=== PATIENT | female | born 1945 | race Caucasian/White ===

== ENCOUNTER → 2016-07-07 | Outpatient (CLI) | payer OTHER ==
[2016-07-08 14:46] LABS: HEMATOCRIT 32.7 % (37.0-47.0); HEMOGLOBIN 9.8 g/dL (12.0-16.0); MEAN CORPUSCULAR HEMOGLOBIN 24.9 PG (27-31); RED BLOOD COUNT 3.94 10^6/uL (4.20-5.40)
[2016-07-08 15:03] LABS: CALCIUM 9.5 mg/dL (8.7-10.7); SERUM ALBUMIN 3.3 g/dL (3.5-4.8)
[2016-07-08 15:10] LABS: PLATELET MORPHOLOGY COMMENT SEE COMMENTS (NORM); RBC MORPHOLOGY COMMENT NORMAL MORPHOLOGY (NORM); WBC MORPHOLOGY COMMENT SEE COMMENTS (NORM)
[2016-07-08 15:11] LABS: BAND NEUTROPHILS % 1 % (0-10); BASOPHILS % (MANUAL) 1 % (0-1); EOSINOPHILS % (MANUAL) 2 % (0-8); LYMPHOCYTES % (MANUAL) 27 % (10-50); MONOCYTES % (MANUAL) 9 % (0-12); NEUTROPHILS % (MANUAL) 60 % (50-80)
== END ==
LOC: LAB 09:41
PROVIDERS: ATTEND Physician Assistant Medical
DX: R53.83 Other fatigue (principal); R63.4 Abnormal weight loss
CPT/HCPCS: 80053; 85007

== ENCOUNTER 2016-09-08 09:00 | Outpatient (CLI) | payer OTHER ==
[2016-09-08] MEDS ORDERED: diphenhydrAMINE 25 MG CAPSULE PO PRN (11:52)
[2016-09-08] MEDS ORDERED: NS 500 ML for Blood Transfusion PRIMARY IV PRN (11:52)
[2016-09-08] MEDS ORDERED: ACETAMINOPHEN 325 MG TABLET PO PRN (11:53)
[2016-09-08] MEDS ORDERED: NORMAL SALINE 10 ML SYRINGE FLUSH IVP PRN (12:30)
[2016-09-08 14:01] VITALS: RESP 20
[2016-09-08 19:00] VITALS: TEMP 98.4
== END 2016-09-08 18:55 | disposition home or self-care (01) ==
LOC: LAB 09:00 → IV THERAPY 09:00
PROVIDERS: ATTEND Nurse Practitioner
DX: C34.11 Malignant neoplasm of upper lobe, right bronchus or lung (principal); D63.0 Anemia in neoplastic disease
CPT/HCPCS: 36415; 36430; 86850; 86900; 86901; 86922; 99211; P9016; Q0163; J7040

== ENCOUNTER 2016-10-17 21:25 | Emergency (ER) | payer OTHER ==
[2016-10-17 21:45] VITALS: RESP 20
[2016-10-17] MEDS ORDERED: Sodium Chloride 0.9% 1,000 ML PRIMARY IV ONE (21:50)
[2016-10-17] MEDS ORDERED: NORMAL SALINE 10 ML SYRINGE FLUSH IVP PRN (21:50)
[2016-10-17 22:09] LABS: HEMATOCRIT 28.1 % (37.0-47.0); HEMOGLOBIN 8.9 g/dL (12.0-16.0); MEAN CORPUSCULAR HEMOGLOBIN 26.3 PG (27-31); MEAN CORPUSCULAR HGB CONC 31.7 g/dL (33-37); MEAN CORPUSCULAR VOLUME 82.9 FL (81-99); MEAN PLATELET VOLUME 9.6 FL (7.4-12.2); PLATELET MORPHOLOGY COMMENT NORMAL MORPHOLOGY (NORM); RBC MORPHOLOGY COMMENT SEE COMMENTS (NORM); RED BLOOD COUNT 3.39 10^6/uL (4.20-5.40); WBC MORPHOLOGY COMMENT NORMAL MORPHOLOGY (NORM)
[2016-10-17 22:10] LABS: BAND NEUTROPHILS % 1 % (0-10); BASOPHILS % (MANUAL) 0 % (0-1); EOSINOPHILS % (MANUAL) 1 % (0-8); LYMPHOCYTES % (MANUAL) 7 % (10-50); MONOCYTES % (MANUAL) 11 % (0-12); NEUTROPHILS % (MANUAL) 80 % (50-80)
[2016-10-17 22:13] LABS: BUN/CREATININE RATIO 18.33 (6-20); CALCIUM 9.9 mg/dL (8.7-10.7); SERUM ALBUMIN 3.6 g/dL (3.5-4.8)
--- NOTE | 2016-10-17 22:23 | PDOC ---
General Adult HPI - General Chief Complaint: Respiratory Complaint Stated Complaint: COUGHING BLOOD Date Seen by Provider: 10/17/16 Time Seen by Provider: 21:30 Source: POSITIVE: Patient Exam Limitations: POSITIVE: No limitations Nurse's Notes Reviewed & Considered: Yes EMS Report Reviewed & Considered: Verbal - History of Present Illness Initial Comment: The patient is a 71-year-old female who is transported to the emergency department by ambulance from the correction with complaints of coughing up blood. She has a known history of lung cancer which has been deemed terminal. She has elected not to pursue any aggressive treatments in regard to her lung cancer. She states that over the past 24 hour she's developed increase in productive cough. Initially this was productive of yellowish sputum. This evening she started to have some blood-tinged sputum and tissue appearing sputum. She also has developed some subjective fever and chills over the past couple of hours. She reportedly had a temperature of 102 at the correction and was given her Jud which contains Tylenol. She denies any other associated symptoms or complaints at this time. Have you received a tetanus shot in the past 10 years?: Unknown - Patient Home Medications Home Medications: Home Medications Docusate Sodium [Colace] 1 cap PO BID cap 07/30/16 Hydrocodone Bit/Acetaminophen [Jud 5-325 Tablet] 1 - 2 tab PO Q4H PRN tab 04/05 Ibuprofen 1 tab PO TID tab 07/30/16 Oxygen (O2) 1 l NASAL Contintuous #3 unit 07/30/16 Potassium Chloride 1 cap PO BID cap 07/30/16 Ondansetron HCl [Zofran] 1 tab PO Q4H PRN tab 07/31/16 Polyethylene Glycol 3350 [Miralax] 17 gm PO QD 07/31/16 fentaNYL Patch 25mcg [Duragesic Patch 25mcg] 25 mcgh TRANSDERM Q72H #10 patch Acetaminophen [Tylenol] 1,000 mg PO PRN PRN 10/17/16 - Patient Allergies Allergies/Adverse Reactions: Allergies Allergy/AdvReac Type Severity Reaction Status Date / Time No Known Drug Allergies Allergy NOT Verified 10/17/16 21:34 APPLICABLE Past Medical History - heen HEENT History: Denies History Cardiovascular History: Denies History Respiratory History: Emphysema, Home Oxygen Use, Other (please comment) Additional Respiratory History: LUNG CA Gastrointestinal History: Other (please comment) Additional Gastrointestinal History: CONSTIPATION Genitourinary History: Denies History Endocrine History: Denies History Musculoskeletal History: Denies History Neurological History: Denies History Blood Disorders: Denies History Psychiatric History: Other (please comment) Additional Psychiatric History: ANOREXIA History of Sexually Transmitted Diseases: No Female Reproductive History: Denies History Obstetrical History: Denies History Cancer History: Lung, Other (please comment) In Past Year Been Physically Harmed or Verbally Threatened: No History of MDRO: No History of Other Communicable Diseases: No Tobacco Use: Former Smoker Alcohol Use: None Substance Use Type: None Significant Family History: No pertinent family hx Past Medical History Reviewed: Reviewed - No Changes ROS - Limitations ROS Limitations: No Limitations Constitution: REPORTS: Chills, Fever Cardiovascular: DENIES: Denies Cardiac Symptoms Respiratory: REPORTS: Cough Productive, Shortness Of Breath (Wears oxygen at 3 L chronically) Gastrointestinal: REPORTS: Denies GI Symptoms Endocrine: REPORTS: Fatigue Musculoskeletal: REPORTS: Denies MS Symptoms Genitourinary: REPORTS: Denies Symptoms Eyes: REPORTS: Denies Symptoms ENT: REPORTS: Denies Symptoms Skin: DENIES: Rash General Adult Exam - General Appearance General Appearance: POSITIVE: Alert, Cooperative, No Acute Distress - HEENT HEENT: POSITIVE: Head Inspection Nml, Eyes Inspection Nml, Ears Inspection Nml, Pharynx Inspect. Nml - Neck Neck: POSITIVE: Normal Inspection. NEGATIVE: Lymphadenopathy - Respiratory Respiratory: POSITIVE: No Respiratory Distress, Breath Sounds Normal (Decreased breath sounds on the right) - Cardiovascular Cardiovascular: POSITIVE: Regular Rate & Rhythm, No Murmur Peripheral Pulses: Dorsalis-pedis (R): 2+, Dorsalis-pedis (L): 2+ - Abdomen Abdomen: Soft: (All Quadrants), Denies Tenderness: (All Quadrants), No Distention: (All Quadrants) - Back Back: POSITIVE: Normal Inspection - Skin Skin: POSITIVE: Normal Color, No Rash - Extremities Extremity: Normal ROM: (All Extremities), Normal Inspection: (All Extremities) - Neurological / Psychological Neurological: POSITIVE: Oriented X3 General Adult Progress - Results Reviewed by me Xrays/CTs/US Reviewed by me: Yes Radiology Findings: Chest x-ray reveals dense consolidation in the right upper lobe, no previous imaging is available for comparison Lab Results Reviewed: Yes Lab Results:: Laboratory Results 10/17/16 Range/Units 21:51 WBC 20.34 H (4.8-10.8) 10^3/uL RBC 3.39 L (4.20-5.40) 10^6/uL Hgb 8.9 L (12.0-16.0) g/dL Hct 28.1 L (37.0-47.0) % MCV 82.9 (81-99) FL MCH 26.3 L (27-31) PG MCHC 31.7 L (33-37) g/dL RDW Std Deviation 57.7 H (39-50) fL RDW Coeff of Judy 19.6 H (11.5-14.5) % Plt Count 853 H (140-350) 10*3/uL MPV 9.6 (7.4-12.2) FL Neutrophils % (Manual) 80 (50-80) % Band Neutrophils % 1 (0-10) % Lymphocytes % (Manual) 7 L (10-50) % Monocytes % (Manual) 11 (0-12) % Eosinophils % (Manual) 1 (0-8) % Basophils % (Manual) 0 (0-1) % Metamyelocytes % Not Reportable Myelocytes % Not Reportable Promyelocytes % Not Reportable Blast Cells Not Reportable WBC Morphology Comment Normal morphology (NORM) Plt Morphology Comment Normal morphology (NORM) RBC Morph Comment See comments (NORM) D-Dimer 4.09 H (0.00-0.59) mg/L Sodium 136 (135-145) meq/L Potassium 4.4 (3.8-5.2) meq/L Chloride 97 L (98-112) meq/L Carbon Dioxide 27 (23-33) meq/L Anion Gap 12 (5-20) BUN 11 (7-22) mg/dL Creatinine 0.6 (0.50-1.20) mg/dL Estimated GFR (>60 ml/min/1.73m(2)) BUN/Creatinine Ratio 18.33 (6-20) Glucose 136 H (78-110) mg/dL Calculated Osmolality 282.0 (267-292) mOsm/kg Lactic Acid 0.8 (0.70-2.10) MMOL/L Calcium 9.9 (8.7-10.7) mg/dL Total Bilirubin 0.5 (0.3-1.2) mg/dL AST 26 (8-39) IU/L ALT 26 (9-52) IU/L Alkaline Phosphatase 178 H (38-126) IU/L C-Reactive Protein 27.0 H (0.0-0.9) mg/dL Total Protein 8.1 H (6.1-8.0) g/dL Albumin 3.6 (3.5-4.8) g/dL Globulin 4.5 H (2.50-4.10) g/dL Albumin/Globulin Ratio 0.80 L (1.3-2.0) mg/g - Patient's Progress MDM / ED Course: The patient appeared to flush on arrival and felt warm to the touch however her measured temperature was normal. She apparently did have a fever at the correction with temperature of 102. Blood cultures and lactate were obtained with initial IV start. Her white count is elevated at 20,000. Her chest x-ray shows dense consolidation in the right upper lobe with no previous imaging available for comparison. Her d-dimer was also significantly elevated and may CTA of the chest was ordered. Current results were discussed with the patient. At this point she most likely has pneumonia and associated lung cancer. Her cancer has been deemed terminal and she has decided not to pursue any aggressive treatments for this and is primarily interested in comfort care. I did discuss her current illness. Her hemoptysis could be secondary to infection or progression of cancer with erosion into blood vessel. Either one of these could become life threatening or serious. The patient is very comfortable with her decision not to pursue any aggressive treatment measures and her primary interest is in comfort care. I discussed with her in length treatment options including been admitted to the hospital for IV antibiotics and treatment versus treatment at the correction with antibiotics versus continued comfort care without treatment of any infection. The patient elected to be treated with oral antibiotics at the correction. She understands that her condition could worsen significantly quickly and is comfortable with her decision not to pursue aggressive treatment measures. She was started on Levaquin 750 mg daily and will continue current medications as previously prescribed at the correction. The CTA of her chest was canceled. - Consult Counseled: POSITIVE: Patient, Family, RE: Lab Results, RE: Radiology Results, RE : DX, RE: Need for F/U Patient Care Time - Estimated PCT Patient Care Time (In Minutes): 40 Vital Signs - Recent Vital Signs Vital Signs: Vital Signs (Last 8 hours) Temp Pulse Resp BP Pulse Ox 10/17/16 21:26 98.6 F 114 H 20 122/53 96 - VS Reviewed Vital Signs Reviewed: Yes Discharge Clinical Impression: Pneumonia, Lung cancer Discharge Disposition: Other (Patient return to the correction) Condition: Stable Patient Instructions Given at Discharge: Bacterial Pneumonia (ED) Additional Instructions: Likely have pneumonia in addition to the known lung cancer. After discussing treatment options he will be started on antibiotics orally with continued treatment and comfort measures at the correction. Start Levaquin 750 mg daily for 10 days. Continue other medications as previously prescribed. Follow -up with primary care in 3-5 days. Follow Up With: MARISA DIANA [Primary Care Provider] -
[2016-10-17 23:37] VITALS: TEMP 98.5
--- NOTE | 2016-10-19 11:53 | DI ---
PA /LATERAL CHEST X-RAY, 10/17/2016 8:50 PM : Clinical History: Hemoptysis. Previous Exam: None at this facility. There is no acute soft tissue or bony abnormality. Heart size is normal. There is complete consolidat ion of the right upper lobe with minimal if any volume loss. There is a small right pleural effusion. No air bronchograms are present and there is no appreciable volume loss. The differential would incl ude a tumor mass, and much less likely pneumonia or pulmonary embolism with infarction. A CT angiogra m of the chest with IV contrast is recommended. Mediastinal structures are normal. There are no pulmo nary nodules. Readin. Complete opacification of the right upper lobe with virtually no loss of volume or presence of ai r bronchograms. 2. A CT angiogram of the chest is recommended.
== END 2016-10-17 23:12 | disposition home or self-care (01) ==
LOC: ER 21:25
DX: J18.9 Pneumonia, unspecified organism (principal); C34.11 Malignant neoplasm of upper lobe, right bronchus or lung; R50.9 Fever, unspecified; R06.02 Shortness of breath; R79.1 Abnormal coagulation profile; R04.2 Hemoptysis; Z99.81 Dependence on supplemental oxygen
CPT/HCPCS: 36415; 71020; 80053; 83605; 85007; 85379; 86140; 87040; 99283; J7030

== ENCOUNTER 2016-10-24 06:00 | Emergency (ER) | payer OTHER ==
--- NOTE | 2016-10-24 06:29 | PDOC ---
Gen Adult / Medical Screen HPI - General Chief Complaint: Laceration / Wound Stated Complaint: FALL WITH LACERATION TO BACK OF HEAD Date Seen by Provider: 10/24/16 Time Seen by Provider: 06:29 Source: POSITIVE: Patient - History of Present Illness Initial Comments: Miss Jefferson is a 71-year-old woman coming in to us today from [facility]. Sometime during the night she fell and spent several hours on the floor unable to get up. She doesn't number exactly when she fell but she does not recall feeling any dizziness chest pain or shortness of breath prior to it. She landed right on her tailbone and then on the back of her head. When nursing staff found her at about 5 AM this morning there was a bunch of clotted , matted blood to the back of her head but she was awake and alert. Right now she is reporting pain to her tailbone as well as to a small cut on the back of her head. She has a history of lung cancer she is currently DO NOT RESUSCITATE but does want antibiotics and pain medicines if indicated. She is not on any blood thinners. Over the past few weeks, her appetite has slowly been getting worse and she is not really taking much oral intake. She has a fentanyl patch on her left shoulder right now for her chronic pain, also takes hydrocodone as needed. - Patient Home Medications Home Medications: Home Medications Docusate Sodium [Colace] 1 cap PO BID cap 07/30/16 Hydrocodone Bit/Acetaminophen [Cutler 5-325 Tablet] 1 - 2 tab PO Q4H PRN tab 04/05 Ibuprofen 1 tab PO TID tab 07/30/16 Oxygen (O2) 1 l NASAL Contintuous #3 unit 07/30/16 Potassium Chloride 1 cap PO BID cap 07/30/16 Ondansetron HCl [Zofran] 1 tab PO Q4H PRN tab 07/31/16 Polyethylene Glycol 3350 [Miralax] 17 gm PO QD 07/31/16 Acetaminophen [Tylenol] 1,000 mg PO PRN PRN 10/17/16 fentaNYL Patch 50mcg [Duragesic Patch 50mcg] 1 patch TD Q3D 10/24/16 - Patient Allergies Allergies/Adverse Reactions: Allergies Allergy/AdvReac Type Severity Reaction Status Date / Time No Known Drug Allergies Allergy NOT Verified 10/24/16 06:50 APPLICABLE Past Medical History - heen HEENT History: Denies History Cardiovascular History: Denies History Respiratory History: Emphysema, Home Oxygen Use, Other (please comment) Additional Respiratory History: LUNG CA Gastrointestinal History: Other (please comment) Additional Gastrointestinal History: CONSTIPATION Genitourinary History: Denies History Endocrine History: Denies History Musculoskeletal History: Denies History Neurological History: Denies History Blood Disorders: Denies History Psychiatric History: Other (please comment) Additional Psychiatric History: ANOREXIA History of Sexually Transmitted Diseases: No Cancer History: Lung, Other (please comment) History of MDRO: No History of Other Communicable Diseases: No Alcohol Use: None Substance Use Type: None Significant Family History: No pertinent family hx Past Medical History Reviewed: Reviewed - No Changes ROS - Limitations ROS Limitations: No Limitations Constitution: REPORTS: Denies Symptoms Cardiovascular: REPORTS: Denies Cardiac Symptoms Respiratory: REPORTS: Denies Resp Symptoms Neurological: REPORTS: Headache Gastrointestinal: REPORTS: Denies GI Symptoms Endocrine: REPORTS: Fatigue Musculoskeletal: REPORTS: Back Pain Genitourinary: REPORTS: Denies Symptoms Eyes: REPORTS: Denies Symptoms ENT: REPORTS: Denies Symptoms Skin: REPORTS: Denies Skin Symptoms Lympathic: REPORTS: Denies Lympathic Symptoms Immunologic: POSITIVE: Denies Symptoms Psychiatric: POSITIVE: Denies Psych Symptoms Gen Adult/Medical Screen Exam - General Appearance General Appearance: POSITIVE: Alert, Cooperative, No Acute Distress - HEENT HEENT: POSITIVE: Other (2 cm laceration to the left side of her occiput. Bleeding is controlled at this point there is a small amount dehiscence. No other hematomas or abrasions.) - Pupils Pupil Size: 2 mm: Bilateral - Neck Neck: POSITIVE: Normal Inspection - Respiratory Respiratory: POSITIVE: No Respiratory Distress, Chest Non-Tender - Cardiovascular Cardiovascular: POSITIVE: Regular Rate & Rhythm Peripheral Pulses: Radial (R): 2+, Radial (L): 2+ - Abdomen Abdomen: Soft: (All Quadrants), Normal Bowel Sounds: (All Quadrants), Denies Tenderness: (All Quadrants), No Splenomegaly: (All Quadrants), No Hepatomegaly: (All Quadrants) - Back Back: POSITIVE: Other (Mild tenderness to the prominence overlying the coccyx, there is no abrasions or open wounds. There is a small amount of erythema.) - Neurological / Psychological Mental Status: POSITIVE: Mood Normal, Affect Normal Orientation: POSITIVE: Oriented x 3 - Skin Skin: POSITIVE: Normal Color, Warm, No Rash - Extremities Extremity: Non-Tender: (All Extremities), Normal ROM: (All Extremities), Normal Inspection: (All Extremities) Procedures - Laceration/Wound Repair Did patient have a laceration repair: Yes Site of Laceration/Wound: left of the occiput Wound Length (cm): 2 Distal CMS: Yes Local Anesthesia Used - Indicate Amt Used in Comment: Lidocaine 1%: Yes Irrigated w/ Saline (mL): 50 Wound Explored: Clean Wound Debrided: Minimal Wound Repaired With: [place] Number of [place]: 4 Layer Closure?: No Drain Placement: No Sterile Dressing Applied?: No Splint Applied?: No Gen Adlt/Medical Scrn Progress - Results Reviewed by me Xrays/CTs/US Reviewed by me: Yes Radiology Findings: no evidence of acute intracranial abnormality, no evidence of significant coccyx injury - Patient's Progress Pain Medication Addressed: POSITIVE: Yes MDM / ED Course: Miss Blair is a 71-year-old woman who is a DO NOT RESUSCITATE with end-stage lung cancer, coming in today with fall during the night. She also has an acute laceration to her occiput due to this fall. My estimation is that the phone due to chronic worsening weakness related to her diagnosis of cancer. Her oral intake has been dropping off over the past few weeks and so she is likely week from that as well. CT scan of the head and x-ray of the pelvis did not reveal any concerning findings. We repaired the laceration on the back of her head as detailed above. We gave her 1 dose of hydrocodone for pain. Patient Care Time - Estimated PCT Patient Care Time (In Minutes): 25 Vital Signs - Recent Vital Signs Vital Signs: Vital Signs (Last 8 hours) Temp Pulse Resp BP Pulse Ox 10/24/16 06:00 99.3 F 107 H 17 95/72 95 - VS Reviewed Vital Signs Reviewed: Yes Discharge Clinical Impression: Laceration - injury, Weakness generalized Fall Qualifiers: Encounter type: initial encounter Qualifier Code: (W19.XXXA) Unspecified fall, initial encounter Discharge Disposition: Discharged to Home Condition: Stable Patient Instructions Given at Discharge: Laceration (ED) Additional Instructions: The skin clips need to be removed in 5-7 days, you can come back to the emergency department for this, or have the physician at your facility do it. The Xray and CT scan showed no evidence of injury. Follow Up With: MARISA DIANA [Primary Care Provider] -
[2016-10-24] MEDS ORDERED: Lidocaine 1% 10 MG/ML - 20 ML VIAL SUBCUT ONE (06:30)
[2016-10-24] MEDS ORDERED: HYDROcodone-APAP 5 MG -325 MG TABLET PO ONE (06:48)
[2016-10-24 07:24] VITALS: RESP 17; TEMP 99.3
--- NOTE | 2016-10-24 07:47 | DI ---
CT HEAD SCAN WITHOUT IV CONTRAST, 10/24/2016 6:30 AM : Clinical History: Head injury. The patient fell. Previous Exam: None at this facility. Scans are obtained from the foramen magnum to the vertex without IV contrast. The fourth ventricle is of normal size, shape, position and contour. The third and lateral ventricles are very mildly dilated but are otherwise normal. There are no abnormal areas of increased or decrea sed density. Specifically, there is no evidence of an acute intracranial hemorrhagic focus. There is mild cerebral atrophy. There are no extracerebral mantles or shift of the midline structures. Bone wi ndow evaluation is normal. The paranasal sinuses are normal. READIN. There is no evidence of an acute intracranial hemorrhagic focus. 2. Mild cerebral atrophy. The study is otherwise normal.
--- NOTE | 2016-10-24 07:48 | DI ---
AP PELVIS, 10/24/2016 6:30 AM : Clinical History: Pain. Previous Exam: None at this facility. There is no soft tissue abnormality. The bony structures of the pelvis are normal. The AP projection of each hip is normal. There is osteoporosis. Readin. Normal AP pelvis exam. 2. Osteoporosis. 3. If symptoms persist at the affected site, then follow-up films or a CT scan of the pelvis are rec ommended in 7-10 days, especially if there is a history of trauma.
== END 2016-10-24 08:22 | disposition home or self-care (01) ==
LOC: ER 06:00
DX: S01.01XA Laceration without foreign body of scalp, initial encounter (principal); R53.1 Weakness; M81.0 Age-related osteoporosis without current pathological fracture; W19.XXXA Unspecified fall, initial encounter
CPT/HCPCS: 12001; 70450; 72170; 99282; J2001

== ENCOUNTER 2016-12-26 11:34 | Inpatient (IN) ==
[2016-12-26] MEDS ORDERED: Sodium Chloride 0.9% 1,000 ML PRIMARY IV ONE (12:05)
[2016-12-26] MEDS ORDERED: NORMAL SALINE 10 ML SYRINGE FLUSH IVP PRN (12:05)
[2016-12-26 12:13] LABS: Hematocrit [HCT] 23.6 % (37.0-47.0); MEAN CORPUSCULAR HEMOGLOBIN 24.9 PG (27-31); MEAN CORPUSCULAR HGB CONC 28.8 g/dL (33-37); MEAN CORPUSCULAR VOLUME 86.4 FL (81-99); MEAN PLATELET VOLUME 9.6 FL (7.4-12.2); RED BLOOD COUNT 2.73 10^6/uL (4.20-5.40)
[2016-12-26 12:19] LABS: BLOOD UREA NITROGEN 7 mg/dL (7-22); SERUM ALBUMIN 2.8 g/dL (3.5-4.8)
[2016-12-26 12:23] LABS: VENOUS PH 7.45 (7.32-7.42)
[2016-12-26 12:44] LABS: Hemoglobin [HGB] 6.8 g/dL (12.0-16.0); WBC MORPHOLOGY COMMENT NORMAL MORPHOLOGY (NORM)
[2016-12-26 12:45] LABS: BAND NEUTROPHILS % 6 % (0-10); BASOPHILS % (MANUAL) 0 % (0-1); EOSINOPHILS % (MANUAL) 1 % (0-8); METAMYELOCYTES % 0 %; MONOCYTES % (MANUAL) 3 % (0-12); MYELOCYTES % 0 %; NEUTROPHILS % (MANUAL) 83 % (50-80); PLATELET MORPHOLOGY COMMENT SEE COMMENTS (NORM); PROMYELOCYTES % 0 %; RBC MORPHOLOGY COMMENT SEE COMMENTS (NORM)
[2016-12-26 13:19] LABS: BILIRUBIN,URINE NEGATIVE (NEG); CLARITY,URINE CLEAR (CLEAR); COLOR,URINE YELLOW (Y); GLUCOSE, URINE (UA) NEGATIVE (NEG); NITRATE,URINE NEGATIVE (NEG); OCCULT BLOOD,URINE Trace-intact (NEG); PROTEIN,URINE NEGATIVE (NEG); UROBILINOGEN,URINE 0.2 EU/dL (0.2)
[2016-12-26 13:26] LABS: RBC,URINE 0-3 /hpf; SQUAMOUS EPITHELIAL CELL,UR RARE; URINE SAMPLE TYPE CLEAN CATCH URINE; WBC,URINE 0-1
--- NOTE | 2016-12-26 13:37 | DI ---
XR CXR 2VW PA/LAT,12/26/2016 12:05 PM: Clinical History: Fever and prior history of breast and lung cancer. Previous Exam: October 17, 2016 Findings: PA and lateral views of the chest are obtained, and demonstrate some increasing opacity of the right upper lung field since the prior exam. There is no infiltrate noted and no effusion. Impression: Increasing opacification of the right hemithorax. This could represent some developing airspace disea se or some mass effect or atelectasis. Correlate clinically. A CT may be appropriate.
[2016-12-26] MEDS ORDERED: Ertapenem Inj 1 GM in Sodium Chloride 0.9% 100 ML IV ONE (13:49)
[2016-12-26] MEDS ORDERED: CLONAZEPAM PO PRN (15:29)
[2016-12-26] MEDS ORDERED: ALBUTEROL SULFATE 2.5 MG/3 ML NEB PRN (15:29)
[2016-12-26] MEDS ORDERED: LIDOCAINE W/ SODIUM BICARB 0.5 ML SYR SUBD PRN (15:29)
[2016-12-26] MEDS ORDERED: cefTRIAXone Inj 2 GM in Sodium Chloride 0.9% 100 ML IV SCH ×2 (15:29→18:00)
[2016-12-26] MEDS ORDERED: fentaNYL 100 MCG/HR PATCH TRANSDERM SCH ×2 (15:29→16:00)
[2016-12-26] MEDS ORDERED: ONDANSETRON 4 MG/2 ML VIAL IVP PRN (15:29)
[2016-12-26] MEDS: NORMAL SALINE 10 ML SYRINGE FLUSH IVP PRN (17:37)
[2016-12-26] MEDS ORDERED: POTASSIUM CHLORIDE 20 MEQ TAB PO ONE (19:01)
--- NOTE | 2016-12-26 19:06 | DI ---
CLINICAL HISTORY: Fever. Lung cancer. Pneumonia. Concern for pulmonary embolus. COMPARISON: No comparison images available. TECHNIQUE: CTA of the chest was performed without and with contrast and submitted for interpretation. FINDINGS: There is no evidence of pulmonary embolus, noting that evaluation of the right upper lobe b ranches is not possible secondary to underlying pulmonary findings described below. The main pulmona ry artery is normal in caliber. There is complete opacification of the right upper lobe, nonspecific and can be correlated with any r elevant surgical history. If no relevant surgical history is present, these findings are concerning for postobstructive atelectasis related to central obstructing mass. Interstitial thickening, small right pleural effusion, and several small nodules in the right lower lobe are nonspecific in the curr ent setting. There is an increased number of mediastinal lymph nodes, nonspecific. No axillary lymp hadenopathy is seen. There is an asymmetric 2.8 cm left superior periareolar breast mass, which can be initially correlate d with mammography and/or ultrasound. The imaged portions of the upper abdomen are grossly unremarka ble. IMPRESSION: 1. No pulmonary embolus, noting nondiagnostic evaluation of the right upper lobe secondary to underly ing pulmonary pathology. 2. Concern for postobstructive collapse of the right upper lobe secondary to central mass unless rele vant surgical history can explain these findings. 3. Right lower lobe interstitial thickening and several small nodules are nonspecific and may current setting. Small right pleural effusion. 4. Asymmetric left breast mass can be further evaluated with mammography and/or ultrasound. NOTIFICATION: The above findings were phoned to Cammie Ocasio in the ER Department on 12/26/2016 at 9:1 8 pm EST.
--- NOTE | 2016-12-26 19:12 | DI ---
HISTORY: Elevated liver function tests. Lung cancer. Fever. COMPARISON: No comparison images available. TECHNIQUE: CT of the abdomen and pelvis was performed and submitted for interpretation. FINDINGS: There is a small right pleural effusion. Please see report from CT of the chest performed the same day for further evaluation of the thoracic anatomy. The liver is grossly unremarkable. The gallbladder is grossly unremarkable. There is no biliary kamilah ekta dilatation. The spleen is within normal limits. The pancreas and adrenal glands are unremarkable. The kidneys are within normal limits. Please note diffuse anasarca and lack of oral contrast limit evaluation for subtle inflammatory aleman es. The imaged bowel, mesentery, and omentum are unremarkable without evidence of obstruction or per foration. There is no lymphadenopathy by size criteria. There is no ascites. No acute skeletal patho logy is seen. Diffuse atherosclerotic calcifications are noted. There are two areas of fusiform aneurysmal dilatat ion of the infrarenal abdominal aorta up to 2.7 cm in caliber. IMPRESSION: 1. No gross acute abdominopelvic pathology, noting limitations related to anasarca lack of oral contr ast. 2. Two areas of fusiform infrarenal abdominal aortic aneurysmal dilatation up to 2.7 cm in caliber. NOTIFICATION: The above findings were phoned to Cammie Ocasio in the ER Department on 12/26/2016 at 9:1 8 pm EST.
[2016-12-26] MEDS ORDERED: Sodium Chloride 0.9% 100 ML IV ONE (19:38)
[2016-12-26] MEDS ORDERED: CEFTRIAXONE SODIUM 2 GM VIAL IV ONE (19:39)
--- NOTE | 2016-12-26 20:14 | PDOC ---
HPI - History of Present Illness Date and Time of Service: 12/26/2016, 2007 Chief Complaint: fever and confusion History of Present Illness: This is a very pleasant 71 YO female that [facility] as a result of a sudden onset of fever and confusion at [facility] today. No reports of cough, nausea, vomiting, diarrhea, abdominal pain, or other symptoms. The patient was difficult to arouse at meal time and was sent for evaluation here due to her fever. A chest xray was done and it was presumed she had pneumonia and she was given a dose of invanz. The patient was also noted to be off her oxygen (normally on 3 LPM), and was placed on 5 LPM. She was found to have elevated WBC, hemoglobin of under 7, but does not want blood transfusions or aggressive therapy. She stated to me she was DNR/DNI. She only wants antibiotics if her quality of life will not be compromised and she will not have any artificial extension of life. The patient admits to me she gets confused about details of her situation and has noticed a gradual decline in her stamina and health this past year. No interventions were tried prior to transfer from [facility]. No exacerbating factors. She does not feel any different after treatment in the ER. The patient did state to me that she opted for diagnostic work up of lung mass and was told she had cancer and refused treatment options of radiation. She told me she though it was a metastatic lesion related to breast cancer. Past Medical History Medical History: 1. presumably, lung cancer, or metastatic disease to lung. 2. COPD, on 3 LPM chronicallyl. 3. neoplastic pain syndrome. 4.weight lossof 25 pounds in past 12 months. Surgical History: 1. lung biopsy, I am trying to get pathology records. Pertinent Family History: She stated her parents both of cancer. Past Social History: used to live in [facility], has two sons, described as healthy, quit smoking in the past, no alcohol, resides in [facility]. Tobacco Use: Former Smoker In the Past 12 Months, Have Used or Abuse Any of the Following Substance: None Alcohol Use: None Medication / Allergies Home Medications: Home Medications Medication Instructions Recorded Confirmed Type Docusate Sodium [Colace] 1 cap PO BID cap 07/30/16 12/26/16 History Oxygen (O2) 1 l NASAL Contintuous #3 unit 07/30/16 12/26/16 Clinic Polyethylene Glycol 3350 [Miralax] 17 gm PO QD 07/31/16 12/26/16 History Fentanyl 100 mcgh TRANSDERM Q72H patch 11/18/16 12/26/16 History Clonazepam 1 tab PO QD tab 11/29/16 12/26/16 History Clonazepam 1 tab PO QD PRN #30 tab 12/04/16 12/26/16 Clinic Hydrocodone/Acetaminophen 1 tab PO Q4-6H PRN #180 tab 12/04/16 12/26/16 Clinic [Hydrocodon-Acetaminophen 5-325] Ibuprofen [Ibuprofen Ib] 2 tab PO TIDWM #180 tab 12/04/16 12/26/16 Clinic Mirtazapine 7.5 mg PO QHS #30 tab 12/04/16 12/26/16 Clinic Ondansetron HCl 8 mg PO QAM #60 tab 12/04/16 12/26/16 Clinic Allergies/Adverse Reactions: Allergies 3 Allergy/AdvReac Type Severity Reaction Status Date / Time No Known Drug Allergies Allergy NOT Verified 12/26/16 18:27 APPLICABLE Review of Systems - Review of Systems All Systems: Reviewed & No Additional Complaints Except as Stated (I did a 12 point review of systems and it was negative exept as per HPI and that noted below:) - Constitutional Constitutional: REPORTS: General Health Poor, Weight Loss, Fever / Chills - Mouth/Throat Mouth/Throat Exam: REPORTS: Other (throat is dry often) - Respiratory Respiratory: REPORTS: Other (denies symptoms.) - Cardiovascular Cardiovascular: REPORTS: Negative System Review - Gastrointestinal Gastrointestinal / Abdominal: REPORTS: Negative System Review - Genitourinary Genitourinary: REPORTS: Negative System Review - Musculoskeletal Musculoskeletal: REPORTS: Negative System Review - Hematlogic / Lymphatic Hematologic / Lymphatic: REPORTS: Other (has cancer, she stated she had a left breast lump that she does not think anyone has looked at.) - Neurological Neurologic: REPORTS: Other (confusion, which she states is common for her. I was also able to note this same complaint on admission to [facility].) Exam - Vitals Vital Signs: Vital Signs Vital Signs (24 hrs) Temp Pulse Resp BP Pulse Ox 12/26/16 15:32 84 16 12/26/16 15:30 98.4 F 81 20 152/68 98 12/26/16 11:50 100.1 F H 93 18 149/66 92 nula Height 5 ft 2 in Weight 124 lb 14.4 oz - General General Appearance: No Acute Distress, Cooperative - Head Head Exam: Normal Inspection, Normocephalic, Atraumatic - Eye Eye Exam: POSITIVE: No Scleral Icterus - ENT ENT Exam: POSITIVE: Mucous Membranes Dry - Neck Neck Exam: Normal Inspection, No Tenderness, Thyromegaly - Respiratory Respiratory Exam: POSITIVE: Breathing Non Labored, Normal to Percussion and Palpation, Decreased Breath Sounds, Coarse Breath Sounds - Cardiovascular Cardiovascular Exam: POSITIVE: RRR, No Murmur, No Clicks, No Gallops, No Rubs, No JVD - GI/Abdominal GI/Abdominal Exam: POSITIVE: Normal Bowel Sounds, Non Tender, Non Distended, Soft - Rectal Rectal Exam: POSITIVE: Deferred - External Exam: POSITIVE: Deferred Exam: POSITIVE: Deferred - Extremities Extremities Exam: POSITIVE: No Clubbing Present, No Edema Present, No Cyanosis Present - Back Back Exam: POSITIVE: Normal Inspection, No CVA Tenderness - Neurological Neurological Exam: POSITIVE: Alert, Oriented x 3 (at thie time of my exam.), No Facial Droop, Speech Intact / Clear, Moves All Extremities Equally - Psychiatric Psychiatric Exam: POSITIVE: Normal Affect, Normal Mood - Integumentary Integumentary Exam: POSITIVE: Normal Color, Warm, Dry, Intact Additional Integumentary Exam Details: breast exam on left breast done with director of physical security in room. large upper, left quadrant mass palpated (12 to 3 position) Results - Labs CBC and BMP: 12/26/16 11:50 12/26/16 11:50 - Imaging Status: Image Reviewed by Me (on my evaluation of the chest X-ray, There is a complete opacification of the right upper lobe. I do not see any mass.) Assessment and Plan - Patient Problems (1) COPD exacerbation Current Visit: Yes Status: Acute Code(s): J44.1 - Chronic obstructive pulmonary disease with (acute) exacerbation (2) Fever Current Visit: Yes Status: Acute Code(s): R50.9 - Fever, unspecified Qualifiers: Fever type: unspecified Qualified Code(s): R50.9 - Fever, unspecified (3) Metastasis to lung Current Visit: Yes Status: Acute Code(s): C78.00 - Secondary malignant neoplasm of unspecified lung Qualifiers: Laterality: right Qualified Code(s): C78.01 - Secondary malignant neoplasm of right lung (4) Left breast mass Current Visit: Yes Status: Acute Code(s): N63 - Unspecified lump in breast (5) Weight loss Current Visit: Yes Status: Acute Code(s): R63.4 - Abnormal weight loss (6) Anemia in chronic illness Current Visit: Yes Status: Acute Code(s): D63.8 - Anemia in other chronic diseases classified elsewhere (7) Leukocytosis Current Visit: Yes Status: Acute Code(s): D72.829 - Elevated white blood cell count, unspecified Qualifiers: Leukocytosis type: unspecified Qualified Code(s): D72.829 - Elevated white blood cell count, unspecified (8) Hypokalemia Current Visit: Yes Status: Acute Code(s): E87.6 - Hypokalemia - Assessment / Plan Additional Assessment/Plan Details: I ordered and reviewed a CT of the chest to determine if there was a pneumonia or some other process with the significant opacification on CXR-- I think it is most consistent with a chronically collapsed lung, but no infiltrate was noted. an abdominal CT scan was done as well, but was obscured by ascites--however, no liver lesions noted with increased alk phos. overall, this is likely malignancy related fever or possible COPD exacerbation or a post obstructive pneumonia that is obscured by a collapsed right upper lung. If this is a pneumonia, she is a class V pneumonia with a mortality of over 25%. The CURB-65, the score is 3, with a 17% risk of at 30 days. overall, I will elect to replace potassium, treat as if this is a COPD exacerbation with antibiotics, steroids, and breathing therapies PRN, and oxygen as necessary. If the patient makes progress, hopefully discharge back to [facility], and if not, then consider escalation in end of life care --perhaps hospice discussion with family again. I will respect the patient's request of not doing any therapy to extend life. I think a brain MRI might be helpful with repeated confusion complaints. if there are brain lesions, it could factor into whether the patient would become a do not transport patient or something of that nature. prognosis extremely guarded.
[2016-12-26] MEDS: DOCUSATE 100 MG CAPSULE PO SCH (20:15)
[2016-12-26] MEDS: D5-1/2NS + 20mEq KCL 1,000 ML PRIMARY IV SCH (20:39)
[2016-12-26] MEDS ORDERED: Mirtazapine Tab 7.5 MG TABLET PO SCH (21:00)
[2016-12-26] MEDS: HYDROcodone-APAP 5 MG -325 MG TABLET PO PRN (23:42)
[2016-12-27] MEDS ORDERED: ClonazePAM Tab 1 MG TABLET PO PRN (00:23)
--- NOTE | 2016-12-27 03:08 | PDOC ---
General Adult HPI - General Chief Complaint: General Medical Stated Complaint: fever Date Seen by Provider: 12/26/16 Time Seen by Provider: 11:10 Source: POSITIVE: Patient, RN/MD Exam Limitations: POSITIVE: No limitations Nurse's Notes Reviewed & Considered: Yes EMS Report Reviewed & Considered: Verbal - History of Present Illness Initial Comment: The patient is a 71-year-old female who is transferred to the emergency room by ambulance from the [facility]. Patient states she has a history of breast cancer metastatic to her lungs. This morning assisted staff found that the patient is febrile. prison staff called the paramedics and paramedics report that upon their arrival the patient had an oxygen saturation of 79% and a fever of 102F. Paramedics placed the patient on supplemental oxygen and her oxygen saturation on arrival to the emergency room was 97%. Patient states that she has been very fatigued lately and the patient states that the assisted staff "had a hard time waking me up this morning ". Patient has not had any surgery. Patient was a former smoker. Have you received a tetanus shot in the past 10 years?: No Body Location Affected: REPORTS: Other (Fever) Timing: REPORTS: Constant Duration: <24 hours Severity: Moderate Quality: REPORTS: Other (Patient denies any acute change in her pain. Patient is on a fentanyl patch and hydrocodone/APAP for chronic pain.) Context: REPORTS: None Modifying Factors: improves with: Nothing Similar Symptoms Previously: No Recent Care Received: REPORTS: Recently Seen, Treated by MD (As above) Any Prior Injuries Related to Current Complaint?: No - Patient Home Medications Home Medications: Home Medications Docusate Sodium [Colace] 1 cap PO BID cap 07/30/16 Oxygen (O2) 1 l NASAL Contintuous #3 unit 07/30/16 Polyethylene Glycol 3350 [Miralax] 17 gm PO QD 07/31/16 Fentanyl 100 mcgh TRANSDERM Q72H patch 11/18/16 Clonazepam 1 tab PO QD tab 11/29/16 Clonazepam 1 tab PO QD PRN #30 tab 12/04/16 Hydrocodone/Acetaminophen [Hydrocodon-Acetaminophen 5-325] 1 tab PO Q4-6H PRN # 180 tab 12/04/16 Ibuprofen [Ibuprofen Ib] 2 tab PO TIDWM #180 tab 12/04/16 Mirtazapine 7.5 mg PO QHS #30 tab 12/04/16 Ondansetron HCl 8 mg PO QAM #60 tab 12/04/16 - Patient Allergies Allergies/Adverse Reactions: Allergies 3 Allergy/AdvReac Type Severity Reaction Status Date / Time No Known Drug Allergies Allergy NOT Verified 12/26/16 18:27 APPLICABLE Past Medical History - heen HEENT History: Denies History Additional HEENT History: BILATERAL CATARACTS WITH SURGICAL REMOVAL Cardiovascular History: Denies History Respiratory History: Emphysema, Home Oxygen Use, Other (please comment) Additional Respiratory History: LUNG CA Gastrointestinal History: Other (please comment) Additional Gastrointestinal History: CONSTIPATION Genitourinary History: Denies History Endocrine History: Denies History Musculoskeletal History: Denies History Prosthesis or Implant: No Neurological History: Denies History Blood Disorders: Denies History Psychiatric History: Other (please comment) Additional Psychiatric History: ANOREXIA History of Sexually Transmitted Diseases: No Female Reproductive History: Denies History Obstetrical History: Denies History Cancer History: Lung, Other (please comment) Cancer Treatment / Date(s) of Treatment: NO TREATMENT In Past Year Been Physically Harmed or Verbally Threatened: No History of MDRO: No History of Other Communicable Diseases: No Tobacco Use: Former Smoker Alcohol Use: None In the Past 12 Months, Have Used or Abuse Any Substance: None Previous Surgical History: Yes Type / Date of Surgery: BILATERAL CATARACT REMOVAL Significant Family History: No pertinent family hx Past Medical History Reviewed: Reviewed - No Changes ROS - Limitations ROS Limitations: No Limitations Constitution: REPORTS: Chills, Fever, Weakness Cardiovascular: REPORTS: Denies Cardiac Symptoms Respiratory: REPORTS: Cough Productive ( Chronic), Shortness Of Breath (Chronic) Neurological: REPORTS: Denies Neuro Symptoms Gastrointestinal: REPORTS: Denies GI Symptoms Endocrine: REPORTS: Denies Symptoms Musculoskeletal: REPORTS: Denies MS Symptoms Genitourinary: REPORTS: Denies Symptoms Eyes: REPORTS: Denies Symptoms ENT: REPORTS: Denies Symptoms Skin: REPORTS: Denies Skin Symptoms Lympathic: REPORTS: Denies Lympathic Symptoms Immunologic: POSITIVE: Denies Symptoms Psychiatric: POSITIVE: Denies Psych Symptoms General Adult Exam - General Appearance General Appearance: POSITIVE: Alert, Cooperative, No Acute Distress, No Evidence of Trauma - HEENT HEENT: POSITIVE: Head Inspection Nml, Eyes Inspection Nml, Ears Inspection Nml, Nose Inspection Nml, Oral/Dental Inspect. Nml, Pharynx Inspect. Nml, PERRL, EOMI - Pupils Pupil Size: 3 mm: Bilateral (PERRLA) - Neck Neck: POSITIVE: Normal Inspection, Thyroid Normal - Respiratory Respiratory: POSITIVE: Rhonchi (Scattered) - Cardiovascular Cardiovascular: POSITIVE: Regular Rate & Rhythm, No Murmur, No Gallop, PMI Normal Peripheral Pulses: Radial (R): 2+, Radial (L): 2+ - Abdomen Abdomen: Soft: (All Quadrants), Normal Bowel Sounds: (All Quadrants), Denies Tenderness: (All Quadrants), No Splenomegaly: (All Quadrants), No Hepatomegaly: (All Quadrants), No Guarding: (All Quadrants), No Rebound: (All Quadrants), No Palpable Pulse: (All Quadrants), No Palpabale Mass: (All Quadrants), No Distention: (All Quadrants), No Rigidity: (All Quadrants) - Back Back: POSITIVE: Normal Inspection - Skin Skin: POSITIVE: Normal Color, Warm, Dry, No Rash - Extremities Extremity: Non-Tender: (All Extremities), Normal ROM: (All Extremities), Normal Inspection: (All Extremities) - Neurological / Psychological Neurological: POSITIVE: Oriented X3, drier Normal As Tested, Motor Normal, Sensation Normal, 5, 6 General Adult Progress - Results Reviewed by me Xrays/CTs/US Reviewed by me: Yes Discussed with Radiologist: Yes Radiology Findings: Chest x-ray shows increasing opacification of the right hemithorax CBC and BMP: 12/26/16 11:50 12/26/16 11:50 - Patient's Progress Pain Medication Addressed: POSITIVE: Not Applicable School/Work Release Addressed: POSITIVE: Not Applicable Re-Examine Time: 13:40 Re-Examine Comment: Patient has a history of chronic anemia and has required blood transfusions in the past. 2 blood cultures were drawn and patient was given a gram of Invanz. Urinalysis is normal. White blood cell count is 22, 930 and hemoglobin is 6.8 with a potassium of 2.3. Case was discussed with Dr. Blair, hospitalist, and patient is admitted for further evaluation and treatment. Status: POSITIVE: Unchanged, Re-Examined Antibiotics Given: Yes (Invanz 1 g IV) - Consult Consult (If Yes, Name of Consulting MD & Time Called): Yes (Dr. Blair, hospitalist, [id number]) Consulting MD will see pt:: POSITIVE: [facility] [place] Admit Counseled: POSITIVE: Patient, RE: Lab Results, RE: Radiology Results, RE: DX, RE : Need for F/U Patient Care Time - Estimated PCT Patient Care Time (In Minutes): 65 Vital Signs - VS Reviewed Vital Signs Reviewed: Yes Discharge Clinical Impression: Pneumonia, Anemia in chronic illness, Lung cancer, Hypokalemia Fever Qualifiers: Fever type: unspecified Qualified Code(s): R50.9 - Fever, unspecified Metastasis to lung Qualifiers: Laterality: right Qualified Code(s): C78.01 - Secondary malignant neoplasm of right lung Discharge Disposition: Admit to Inpatient Condition: Fair Date Decision to Admit to Inpatient: 12/26/16 Time Decision to Admit to Inpatient: 13:30
[2016-12-27 04:57] LABS: BLOOD UREA NITROGEN 5 mg/dL (7-22); MAGNESIUM 2.1 mg/dL (1.6-2.4)
[2016-12-27] MEDS: D5-1/2NS + 20mEq KCL 1,000 ML PRIMARY IV SCH (08:05)
[2016-12-27] MEDS: DOCUSATE 100 MG CAPSULE PO SCH (08:57)
[2016-12-27] MEDS ORDERED: Patch Removal PATCH TRANSDERM SCH (09:00)
[2016-12-27] MEDS ORDERED: ENOXAPARIN SODIUM 40 MG/0.4 ML SYRINGE SUBCUT SCH (09:00)
[2016-12-27] MEDS ORDERED: POLYETHYLENE GLYCOL 3350 17 GM POWDER PO SCH (09:00)
[2016-12-27] MEDS ORDERED: fentaNYL 100 MCG/HR PATCH TRANSDERM SCH (09:00)
[2016-12-27] MEDS: HYDROcodone-APAP 5 MG -325 MG TABLET PO PRN (09:32)
[2016-12-27] MEDS ORDERED: LORazepam 2 MG/1 ML VIAL ONE (10:13)
[2016-12-27] MEDS ORDERED: LORazepam 2 MG/1 ML VIAL IVP ONE (10:44)
[2016-12-27] MEDS: NORMAL SALINE 10 ML SYRINGE FLUSH IVP PRN (10:46)
[2016-12-27] MEDS ORDERED: DIAZEPAM 10 MG/2 ML (5 MG/1 ML) CARPUJECT IVP PRN (12:53)
[2016-12-27] MEDS ORDERED: DIAZEPAM 10 MG/2 ML (5 MG/1 ML) CARPUJECT IVP ONE (12:54)
[2016-12-27] MEDS ORDERED: MORPHINE IV SCH ×4 (13:00→15:30)
[2016-12-27 13:38] VITALS: BP 140/60; TEMP 98.7
[2016-12-27] MEDS ORDERED: MORPHINE IV ONE (13:57)
[2016-12-27] MEDS ORDERED: Morphine Syringe 300mg/30ml 300 MG/30 ML PCA.SYRING IV SCH ×4 (14:00→15:30)
[2016-12-27] MEDS ORDERED: Sodium Chloride 0.9% 1,000 ML ONE (14:18)
[2016-12-27] MEDS: MORPHINE IV SCH ×2 (14:52→15:03)
--- NOTE | 2016-12-27 16:29 | PDOC(PROG) ---
Date and Time of Service: 12/27/2016, 1130 Interval History: THe patient does not feel well, is weak, and does not want to continue aggressive therapy. She requests pain control and treatment of primary symptoms of anxiouisness, discomfort, pain, and shortness of breath. Objective : Data - Labs CBC and BMP: 12/26/16 11:50 12/27/16 04:30 Objective : Exam - General General Appearance: Cooperative, Mild Distress (breathing is more labored today) Additional General Exam Details: Vital Signs (24 hrs) Temp Pulse Pulse Resp BP Pulse Ox 12/27/16 13:00 98.7 F 24 L 86 H 140/60 93 12/27/16 09:41 98 20 94 12/27/16 09:40 110 H 20 94 12/27/16 09:00 100 F H 97 24 177/62 92 12/27/16 05:16 94 12/27/16 04:44 97.9 F 80 22 143/58 98 12/27/16 00:19 98.2 F 85 24 147/70 90 12/26/16 20:56 98 F 77 20 126/55 94 - Eye Eye Exam: No Scleral Icterus - ENT ENT Exam: Mucous Membranes Moist - Respiratory Respiratory Exam: Decreased Breath Sounds, Coarse Breath Sounds Additional Respiratory Exam Details: more labored. can only say a few words at a time. - Cardiovascular Cardiovascular Exam: RRR, No Murmur, No Clicks, No Gallops, No Rubs, No JVD - GI/Abdominal GI/Abdominal Exam: Normal Bowel Sounds, Non Tender, Non Distended, Soft - Extremities Extremities Exam: No Clubbing Present, No Edema Present, No Cyanosis Present - Neurological Neurological Exam: Alert, Oriented x 3, No Facial Droop, Speech Intact / Clear - Psychiatric Psychiatric Exam: Normal Affect, Normal Mood Assessment and Plan - Patient Problems (1) Metastasis to lung Current Visit: Yes Status: Acute Code(s): C78.00 - Secondary malignant neoplasm of unspecified lung Qualifiers: Laterality: right Qualified Code(s): C78.01 - Secondary malignant neoplasm of right lung (2) COPD exacerbation Current Visit: Yes Status: Acute Code(s): J44.1 - Chronic obstructive pulmonary disease with (acute) exacerbation (3) Fever Current Visit: Yes Status: Acute Code(s): R50.9 - Fever, unspecified Qualifiers: Fever type: unspecified Qualified Code(s): R50.9 - Fever, unspecified (4) Left breast mass Current Visit: Yes Status: Acute Code(s): N63 - Unspecified lump in breast (5) Weight loss Current Visit: Yes Status: Acute Code(s): R63.4 - Abnormal weight loss (6) Anemia in chronic illness Current Visit: Yes Status: Acute Code(s): D63.8 - Anemia in other chronic diseases classified elsewhere (7) Leukocytosis Current Visit: Yes Status: Acute Code(s): D72.829 - Elevated white blood cell count, unspecified Qualifiers: Leukocytosis type: unspecified Qualified Code(s): D72.829 - Elevated white blood cell count, unspecified (8) Hypokalemia Current Visit: Yes Status: Acute Code(s): E87.6 - Hypokalemia - Assessment / Plan Additional Assessment/Plan Details: I discussed the clinical picture with the patient and her son, Christian. The patient has been consistent and specific with her goals of therapy. She does not want therapy to extend her life. Her oxygen requirement has more than doubled from baseline, weakness has increased, work of breathing has increased, and the patient does not want further therapy. She requested we treat her pain , anxiety, shortness of breath and discomfort and stop all other aggressive therapies, antibiotics etc. The patient's son, Christian, agrees. Both the patient and her son understand that regardless of any therapy, the patient will of her cancer on this admission. The patient told me she does not want to suffer in front of her family members and family was of utmost importance to her in this setting. stop antibiotics IV valium, IV morphine, albuterol NEBS, and treatment of primary symptoms.
[2016-12-28 05:25] VITALS: RESP 0
--- NOTE | 2016-12-28 12:25 | DCSUMMARY ---
Hospitalization Summary Admit Date: 12/26/16 Discharge Date: 12/28/16 Primary Diagnosis:: terminal metastatic lung cancer Hospital Course: This is a 71-year-old female that was admitted in the setting of fever, confusion, and known metastasis or lung cancer. She had a large breast lump as well. Likely this was cancerous. We tried to treat her with antibiotics and steroids as they're turned out to be no infiltrate identified on CT scan, but there was a large collapsed right lung (upper lung). The patient was significantly worsening state, had doubled oxygen requirement, and was very specific that she did not want anything to extend her life. She wanted treatment of her primary symptoms only. I discussed with her son, Christian, and we elected to withdraw aggressive care and treat the patient with pain medications and anxiolytics and she succumbed in past due to lung cancer on 01/2017, pronounced at 353. Exam - Vitals Vital Signs: Vital Signs Temperature 98.7 F Temperature Source Temporal Artery Scan Pulse Rate [Pulse Oximeter] 24 Pulse Rate 98 Respiratory Rate 0 Blood Pressure [Right Arm] 140/60 Pulse Ox 0 Oxygen Flow Rate 0 Oxygen Delivery Method Nasal Cannula Height 5 ft 2 in Weight 124 lb 1.6 oz Data Perinent Studies: Laboratory Results 12/26/16 12/26/16 12/26/16 Range/Units 11:50 11:50 12:18 WBC 22.93 H (4.8-10.8) 10^3/uL RBC 2.73 L (4.20-5.40) 10^6/uL Hgb 6.8 L* (12.0-16.0) g/dL Hct 23.6 L (37.0-47.0) % MCV 86.4 (81-99) FL MCH 24.9 L (27-31) PG MCHC 28.8 L (33-37) g/dL RDW Std Deviation 54.8 H (39-50) fL RDW Coeff of Judy 18.3 H (11.5-14.5) % Plt Count 962 H (140-350) 10*3/uL MPV 9.6 (7.4-12.2) FL Neutrophils % (Manual) 83 H (50-80) % Band Neutrophils % 6 (0-10) % Lymphocytes % (Manual) 7 L (10-50) % Monocytes % (Manual) 3 (0-12) % Eosinophils % (Manual) 1 (0-8) % Basophils % (Manual) 0 (0-1) % Metamyelocytes % 0 % Myelocytes % 0 % Promyelocytes % 0 % Blast Cells 0 (0-1) % WBC Morphology Comment Normal morphology (NORM) Plt Morphology Comment See comments (NORM) RBC Morph Comment See comments (NORM) VBG pH 7.45 H (7.32-7.42) VBG pCO2 57 H (45-55) mmHg VBG HCO3 40 H (22-26) mmol/L VBG Base Excess 16 H (-2-2) MMOL/L Sodium 140 (135-145) meq/L Potassium 2.3 L* (3.8-5.2) meq/L Chloride 91 L (98-112) meq/L Carbon Dioxide 38 H (23-33) meq/L Anion Gap 11 (5-20) BUN 7 (7-22) mg/dL Creatinine 0.4 L (0.50-1.20) mg/dL Estimated GFR [employer] BUN/Creatinine Ratio 17.50 (6-20) Glucose 102 (78-110) mg/dL Calculated Osmolality 287.0 (267-292) mOsm/kg Lactic Acid 1.0 (0.70-2.10) MMOL/L Calcium 7.9 L (8.7-10.7) mg/dL Magnesium 2.0 (1.6-2.4) mg/dL Total Bilirubin 0.5 (0.3-1.2) mg/dL AST 27 (8-39) IU/L ALT 27 (9-52) IU/L Alkaline Phosphatase 173 H (38-126) IU/L C-Reactive Protein 34.4 H (0.0-0.9) mg/dL Total Protein 6.7 (6.1-8.0) g/dL Albumin 2.8 L (3.5-4.8) g/dL Globulin 3.9 (2.50-4.10) g/dL Albumin/Globulin Ratio 0.70 L (1.3-2.0) mg/g Ur Collection Type Urine Color (Y) Urine Clarity (CLEAR) Urine pH (5.0-8.5) Ur Specific Ovid (1.005-1.030) Urine Protein (NEG) mg/dl Urine Glucose (UA) (NEG) mg/dL Urine Ketones (NEG) Urine Occult Blood (NEG) Urine Nitrate (NEG) Urine Bilirubin (NEG) Urine Urobilinogen (0.2) EU/dL Ur Leukocyte Esterase (NEG) Urine RBC (NONE) /hpf Urine WBC (NONE) Ur Squamous Epith Cells (NONE) Ur Renal Epithelial Cell (NONE) Urine Crystals Urine Bacteria (NONE) Urine Casts (NONE) Urine Mucus (NONE) Urine Trichomonas (NONE) Urine Yeast (NONE) Ur Culture Indicated? 12/26/16 12/27/16 Range/Units 13:03 04:30 WBC (4.8-10.8) 10^3/uL RBC (4.20-5.40) 10^6/uL Hgb (12.0-16.0) g/dL Hct (37.0-47.0) % MCV (81-99) FL MCH (27-31) PG MCHC (33-37) g/dL RDW Std Deviation (39-50) fL RDW Coeff of Judy (11.5-14.5) % Plt Count (140-350) 10*3/uL MPV (7.4-12.2) FL Neutrophils % (Manual) (50-80) % Band Neutrophils % (0-10) % Lymphocytes % (Manual) (10-50) % Monocytes % (Manual) (0-12) % Eosinophils % (Manual) (0-8) % Basophils % (Manual) (0-1) % Metamyelocytes % % Myelocytes % % Promyelocytes % % Blast Cells (0-1) % WBC Morphology Comment (NORM) Plt Morphology Comment (NORM) RBC Morph Comment (NORM) VBG pH (7.32-7.42) VBG pCO2 (45-55) mmHg VBG HCO3 (22-26) mmol/L VBG Base Excess (-2-2) MMOL/L Sodium 141 (135-145) meq/L Potassium 2.7 L (3.8-5.2) meq/L Chloride 95 L (98-112) meq/L Carbon Dioxide 38 H (23-33) meq/L Anion Gap 8 (5-20) BUN 5 L (7-22) mg/dL Creatinine 0.4 L (0.50-1.20) mg/dL Estimated GFR Professor [employer] BUN/Creatinine Ratio 12.50 (6-20) Glucose 113 H (78-110) mg/dL Calculated Osmolality 289.0 (267-292) mOsm/kg Lactic Acid (0.70-2.10) MMOL/L Calcium 8.2 L (8.7-10.7) mg/dL Magnesium 2.1 (1.6-2.4) mg/dL Total Bilirubin (0.3-1.2) mg/dL AST (8-39) IU/L ALT (9-52) IU/L Alkaline Phosphatase (38-126) IU/L C-Reactive Protein (0.0-0.9) mg/dL Total Protein (6.1-8.0) g/dL Albumin (3.5-4.8) g/dL Globulin (2.50-4.10) g/dL Albumin/Globulin Ratio (1.3-2.0) mg/g Ur Collection Type Clean catch urine Urine Color Yellow (Y) Urine Clarity Clear (CLEAR) Urine pH 7.0 (5.0-8.5) Ur Specific Ovid 1.010 (1.005-1.030) Urine Protein Negative (NEG) mg/dl Urine Glucose (UA) Negative (NEG) mg/dL Urine Ketones 15 (NEG) Urine Occult Blood Trace-intact H (NEG) Urine Nitrate Negative (NEG) Urine Bilirubin Negative (NEG) Urine Urobilinogen 0.2 (0.2) EU/dL Ur Leukocyte Esterase Negative (NEG) Urine RBC 0-3 (NONE) /hpf Urine WBC 0-1 (NONE) Ur Squamous Epith Cells Rare (NONE) Ur Renal Epithelial Cell None (NONE) Urine Crystals None Urine Bacteria None (NONE) Urine Casts None (NONE) Urine Mucus None (NONE) Urine Trichomonas None (NONE) Urine Yeast None (NONE) Ur Culture Indicated? Culture not set radiology data: [address] [facility] [place] [address] PH: DD: [phone] FAX: [phone] ~DIAGNOSTIC IMAGING REPORT~ Patient: DANIAL MCGILL : 1945 Sex: F Age: 71 Exam Name: CT CTA Chest Non-Coronary [facility] Exam Date: 12/26/16 Report # : [id number] CPT Code: 78321 EMR/MR #: [id number] Ordering: OSVALDO ELIZONDO Admiting: OSVALDO ELIZONDO DO Primary: Blair Quezada MD Attending: OSVALDO ELIZONDO DO Signed CLINICAL HISTORY: Fever. Lung cancer. Pneumonia. Concern for pulmonary embolus. COMPARISON: No comparison images available. TECHNIQUE: CTA of the chest was performed without and with contrast and submitted for interpretation. FINDINGS: There is no evidence of pulmonary embolus, noting that evaluation of the right upper lobe branches is not possible secondary to underlying pulmonary findings described below. The main pulmonary artery is normal in caliber. There is complete opacification of the right upper lobe, nonspecific and can be correlated with any relevant surgical history. If no relevant surgical history is present, these findings are concerning for postobstructive atelectasis related to central obstructing mass. Interstitial thickening, small right pleural effusion, and several small nodules in the right lower lobe are nonspecific in the current setting. There is an increased number of mediastinal lymph nodes, nonspecific. No axillary lymphadenopathy is seen. There is an asymmetric 2.8 cm left superior periareolar breast mass, which can be initially correlated with mammography and/or ultrasound. The imaged portions of the upper abdomen are grossly unremarkable. IMPRESSION: 1. No pulmonary embolus, noting nondiagnostic evaluation of the right upper lobe secondary to underlying pulmonary pathology. 2. Concern for postobstructive collapse of the right upper lobe secondary to central mass unless relevant surgical history can explain these findings. 3. Right lower lobe interstitial thickening and several small nodules are nonspecific and may current setting. Small right pleural effusion. 4. Asymmetric left breast mass can be further evaluated with mammography and/or ultrasound. NOTIFICATION: The above findings were phoned to Cammie Ocasio in the ER Department on 12/26/2016 at 9:18 pm EST. Dictated By: 12/26/16 0000 Scott Garcia MD. Signed By: 12/27/16 0054 Scott Garcia MD. [address] [facility] [place] [address] PH: DD: [phone] FAX: [phone] ~DIAGNOSTIC IMAGING REPORT~ Patient: DANIAL MCGILL : 1945 Sex: F Age: 71 Exam Name: CT Abdomen/Pelvis WWO Contrast Exam Date: 12/26/16 Report # : [id number] CPT Code: 72157 EMR/MR #: [id number] Ordering: OSVALDO ELIZONDO Admiting: OSVALDO ELIZONDO DO Primary: Blair Quezada MD Attending: OSVALDO ELIZONDO DO Signed HISTORY: Elevated liver function tests. Lung cancer. Fever. COMPARISON: No comparison images available. TECHNIQUE: CT of the abdomen and pelvis was performed and submitted for interpretation. FINDINGS: There is a small right pleural effusion. Please see report from CT of the chest performed the same day for further evaluation of the thoracic anatomy. The liver is grossly unremarkable. The gallbladder is grossly unremarkable. There is no biliary ductal dilatation. The spleen is within normal limits. The pancreas and adrenal glands are unremarkable. The kidneys are within normal limits. Please note diffuse anasarca and lack of oral contrast limit evaluation for subtle inflammatory changes. The imaged bowel, mesentery, and omentum are unremarkable without evidence of obstruction or perforation. There is no lymphadenopathy by size criteria. There is no ascites. No acute skeletal pathology is seen. Diffuse atherosclerotic calcifications are noted. There are two areas of fusiform aneurysmal dilatation of the infrarenal abdominal aorta up to 2.7 cm in caliber. IMPRESSION: 1. No gross acute abdominopelvic pathology, noting limitations related to anasarca lack of oral contrast. 2. Two areas of fusiform infrarenal abdominal aortic aneurysmal dilatation up to 2.7 cm in caliber. NOTIFICATION: The above findings were phoned to Cammie Ocasio in the ER Department on 12/26/2016 at 9:18 pm EST. Dictated By: 12/26/16 0000 Scott Garcia MD. Signed By: 12/27/16 0054 Scott Garcia MD. Patient Problems - Patient Problem List (1) Metastasis to lung Status: Acute Code(s): C78.00 - Secondary malignant neoplasm of unspecified lung Qualifiers: Laterality: right Qualified Code(s): C78.01 - Secondary malignant neoplasm of right lung Category: Medical (2) COPD exacerbation Status: Acute Code(s): J44.1 - Chronic obstructive pulmonary disease with ( acute) exacerbation Category: Medical (3) Fever Status: Acute Code(s): R50.9 - Fever, unspecified Qualifiers: Fever type: unspecified Qualified Code(s): R50.9 - Fever, unspecified Category: Medical (4) Left breast mass Status: Acute Code(s): N63 - Unspecified lump in breast Category: Medical (5) Weight loss Status: Acute Code(s): R63.4 - Abnormal weight loss Category: Medical (6) Anemia in chronic illness Status: Acute Code(s): D63.8 - Anemia in other chronic diseases classified elsewhere Category: Medical (7) Leukocytosis Status: Acute Code(s): D72.829 - Elevated white blood cell count, unspecified Qualifiers: Leukocytosis type: unspecified Qualified Code(s): D72.829 - Elevated white blood cell count, unspecified Category: Medical (8) Hypokalemia Status: Acute Code(s): E87.6 - Hypokalemia Category: Medical
== END 2016-12-28 05:20 | disposition expired | DRG 182 ==
LOC: ER 11:34 → MED/SURG 15:07
PROVIDERS: ADMIT Family Medicine; ATTEND Family Medicine